=== PATIENT | female | born 1995 | race Caucasian/White ===

== ENCOUNTER 2017-12-21 11:58 | Emergency (ER) | payer MEDICAID ==
[~2017-12-21 11:58] MED LIST: EZFE 200200 MG PO; PRENATAL COMPLE1 TAB PO
[2017-12-21 15:40] LABS: BASOPHILS 0.2 % (0-2); EOSINOPHILS 1.1 % (0-7); HEMATOCRIT 37.9 % (36.0-48.0); HEMOGLOBIN 12.6 g/dL (12-16); IMMATURE GRANULOCYTES 0.1 % (0-5); LYMPHOCYTES 26.6 % (15-50); MCH 30.5 pg (26.0-34.0); MCHC 33.2 g/dL (31.0-37.0); MCV 91.8 fL (80.0-100.0); MEAN PLATELET VOLUME 9.7 fL (7.4-10.4); MONOCYTES 4.2 % (2-11); NEUTROPHILS 67.8 % (40-80); PLATELET COUNT 254 10x3/uL (130-400); RBC 4.13 10x6/uL (4.00-5.40); RDW 13.1 % (11.5-14.5)
[2017-12-21 15:47] LABS: APTT 26.6 SECONDS (22.8-39.4); INR 0.83 (0.85-1.17)
[2017-12-21 16:05] LABS: HCG URINE NEGATIVE (NEGATIVE)
[2017-12-21 16:06] LABS: APPEARANCE CLEAR (CLEAR); BILIRUBIN NEGATIVE (NEGATIVE); COLOR YELLOW (YELLOW); GLUCOSE NEGATIVE (NEGATIVE); KETONE NEGATIVE (NEGATIVE); NITRITE NEGATIVE (NEGATIVE); PROTEIN NEGATIVE (NEGATIVE); UROBILINOGEN NORMAL (NORMAL)
[2017-12-21 16:07] LABS: WHITE CELLS - URINE 25-50 /hpf (0-5)
[2017-12-21 16:08] LABS: BACTERIA FEW /hpf (NONE SEEN); EPITHELIAL CELLS 0-5 /hpf (0-5); RED CELLS - URINE 0-5 /hpf (0-5)
[2017-12-21 16:41] LABS: UDS - AMPHET NEGATIVE QUAL (NEGATIVE); UDS - BARB NEGATIVE QUAL (NEGATIVE); UDS - BENZO NEGATIVE QUAL (NEGATIVE); UDS - COCAINE NEGATIVE QUAL (NEGATIVE); UDS - OPIATE NEGATIVE QUAL (NEGATIVE); UDS - PCP NEGATIVE QUAL (NEGATIVE); UDS - THC NEGATIVE QUAL (NEGATIVE)
== END 2017-12-21 16:53 | disposition home or self-care (01) ==
LOC: D.ER 11:58
PROVIDERS: Physician Assistant Medical
DX: N39.0 Urinary tract infection, site not specified (principal)

== ENCOUNTER 2017-12-28 08:58 | Emergency (ER) | payer MEDICAID | END 2017-12-28 10:14 | disposition home or self-care (01) | LOC: D.ER 08:58 | DX: J11.1 Influenza due to unidentified influenza virus with other respiratory manifestations (principal); F17.200 Nicotine dependence, unspecified, uncomplicated ==

== ENCOUNTER 2018-01-07 17:56 | Emergency (ER) | payer MEDICAID ==
[2018-04-11 08:50] VITALS: BMI 23.7
== END 2018-01-07 18:00 | disposition left against medical advice (07) ==
LOC: D.ER 17:56
DX: Z02.9 Encounter for administrative examinations, unspecified (principal)

== ENCOUNTER 2018-01-07 18:23 | Emergency (ER) | payer MEDICAID ==
[2018-04-11 08:50] VITALS: BMI 23.7
== END 2018-01-07 23:47 | disposition home or self-care (01) ==
LOC: D.ER 18:23
DX: S46.912A Strain of unspecified muscle, fascia and tendon at shoulder and upper arm level, left arm, initial encounter (principal); X58.XXXA Exposure to other specified factors, initial encounter; Y93.89 Activity, other specified; Y92.89 Other specified places as the place of occurrence of the external cause; F17.200 Nicotine dependence, unspecified, uncomplicated

== ENCOUNTER 2018-04-04 14:49 | Emergency (ER) | payer OTHER ==
[2018-04-04 17:54] LABS: APPEARANCE HAZY (CLEAR); BILIRUBIN NEGATIVE (NEGATIVE); COLOR YELLOW (YELLOW); GLUCOSE NEGATIVE (NEGATIVE); KETONE NEGATIVE (NEGATIVE); NITRITE NEGATIVE (NEGATIVE); PROTEIN NEGATIVE (NEGATIVE); SPECIFIC GRAVITY 1.015 (1.005-1.020); UROBILINOGEN NORMAL (NORMAL)
[2018-04-04 17:55] LABS: WHITE CELLS - URINE 0-5 /hpf (0-5)
[2018-04-04 17:56] LABS: BACTERIA FEW /hpf (NONE SEEN); RED CELLS - URINE 0-5 /hpf (0-5)
[2018-04-04 17:58] LABS: HCG URINE NEGATIVE (NEGATIVE)
[2018-04-04 18:01] LABS: UDS - AMPHET POSITIVE QUAL (NEGATIVE); UDS - BARB NEGATIVE QUAL (NEGATIVE); UDS - BENZO NEGATIVE QUAL (NEGATIVE); UDS - COCAINE NEGATIVE QUAL (NEGATIVE); UDS - OPIATE NEGATIVE QUAL (NEGATIVE); UDS - PCP NEGATIVE QUAL (NEGATIVE); UDS - THC NEGATIVE QUAL (NEGATIVE)
[2018-04-11 08:50] VITALS: BMI 23.7
== END 2018-04-04 18:42 | disposition home or self-care (01) ==
LOC: D.ER 14:49
PROVIDERS: Physician Assistant
DX: M54.12 Radiculopathy, cervical region (principal); F15.90 Other stimulant use, unspecified, uncomplicated; J20.9 Acute bronchitis, unspecified

== ENCOUNTER 2018-04-11 06:35 | Day surgery (SDC) | payer MEDICAID ==
[2018-04-10 09:28] LABS: HEMATOCRIT 37.4 % (36.0-48.0); HEMOGLOBIN 12.8 g/dL (12-16); MCH 30.6 pg (26.0-34.0); MCHC 34.2 g/dL (31.0-37.0); MCV 89.5 fL (80.0-100.0); MEAN PLATELET VOLUME 9.8 fL (7.4-10.4); RBC 4.18 10x6/uL (4.00-5.40); WBC 8.3 10x3/uL (4.8-10.8)
[~2018-04-11] VITALS: Ht 162.6 cm; Wt 62.6 kg
--- NOTE | ~2018-04-11 | OP ---
PATIENT NAME: JOSE PARADA MEDICAL RECORD: [id number] :95 LOCATION:[facility] ADMISSION DATE: SURGEON: LIZA ROSSI MD DATE OF OPERATION: 04/11/2018 PREOPERATIVE DIAGNOSES: 1. Impingement syndrome of the left shoulder. 2. Rotator cuff tear of the left shoulder. 3. Painful hardware of the left forearm. POSTOPERATIVE DIAGNOSES: 1. Impingement syndrome of the left shoulder. 2. Acromioclavicular arthritis of the left shoulder. 3. Symptomatic hardware of the left forearm. PROCEDURES: 1. Arthroscopic distal clavicle excision done through separate incision -- 1 cm. 2. Arthroscopic subacromial decompression, acromioplasty, and bursectomy. 3. Removal of symptomatic hardware of the left forearm. SURGEON: Liza Rossi MD ACCOUNTING SYSTEM EXPERT: JOSEPH Murillo. INTRAOPERATIVE COMPLICATIONS: None. SUMMARY OF PATHOLOGIC FINDINGS: The patient did not have a full-thickness rotator cuff tear. There was some attritional tearing of the rotator cuff, mild biceps tendinitis was seen down to the floor. I felt like it needed a biceps tenodesis. The patient did have substantial subacromial bursitis with a type 3 acromion. The plate placed in the patient's forearm, specifically the ulna, had overgrowth at each ends and around the side that required mild osteotomy for removal. OPERATIVE SUMMARY IN DETAIL: After obtaining the appropriate preoperative orthopedic surgery consent as well as anesthetic consultation, evaluation and clearance, the patient was brought to the operating room and placed on the operating table supine position. After general laryngeal mask airway was administered, the patient was placed in right lateral decubitus position. All pressure points well padded to include down leg peritoneal pad as well as axillary roll. The patient was held firmly to the operating table using the vacuum pack suction system. Left upper extremity and shoulder were prepped and draped in a routine sterile fashion. The arm was held in the Arthrex traction boom in 30 degrees of forward flexion, 30 degrees of abduction, 10 pounds of traction laterally. Arthroscopy was established in the glenohumeral joint from the posterior portal. Anterior portal was established in the anterior safe interval. Diagnostic arthroscopy did reveal the patient to have some mild biceps tendinitis in the intraarticular aspect. Attention was then turned to the subacromial space. While in the subacromial space, substantial amount of bursitis was encountered. The [place] tissue ablation system was utilized to denude the undersurface of the acromion of all soft tissue elements. A 5-0 barrel bur was then used to perform acromioplasty at the level of acromioclavicular joint. Through a separate anterior portal, under direct arthroscopic visualization, distal clavicle was excised for 1 cm. Having OPERATIVE REPORT [id number] JOSE PARADA completed this, a substantial bursectomy was required to both the lateral recess, anterior recess, posterior recess, and across the top of the rotator cuff. Rotator cuff was visualized and rotated for dynamic arthroscopic visualization. No tearing could be found even with probing. Having completed this, arthroscopy portals were closed in routine interrupted fashion using 4-0 Prolene. Xeroform was then laid across this. At this point, a sterile tourniquet was brought in, placed in the upper aspect of the left forearm. The forearm was then exsanguinated, tourniquet was inflated to 250 mmHg. Incision was then made directly over the previous incision for insertion of the plate. It was elongated slightly on either end for better exposure. Dissection was carried down to the plate and a combination of rongeurs and osteotome was utilized to remove some of the overgrowth. Serial and sequential removal of the Synthes plate with both torque and standard hex head screws were removed. After this was removed, then the plate was gently tamped off with the osteotome. All bony prominences were then removed with a rongeur. The wound was then irrigated and closed with #1 Vicryl, followed by 2-0 Vicryl, followed by 4-0 Prolene. Sterile dressings were applied. Tourniquet was deflated. Final dressings were also applied to the shoulder. The patient was awakened, LMA was removed. She was taken to the recovery room in stable condition. All final needle and sponge counts were correct. TRANSINT:[id number] Voice Confirmation ID: [id number] DOCUMENT ID: [id number] ENID WARREN, LIZA STEIN at 1438 CC: [id number] DICTATION DATE: 04/11/18 1104 BAR MACHINE OPERATOR MULTIPLE SPINDLE: 04/11/18 1137 [facility] 04/11/18 [facility] [address] [place] [address]
[2018-04-11 08:50] VITALS: BP 102/54; Ht 162.6 cm; Wt 62.6 kg
[2018-04-11 09:17] LABS: HCG URINE NEGATIVE (NEGATIVE)
[2018-04-11] MEDS ORDERED: HYDROCODONE-APA1 TAB PO (10:59)
== END 2018-04-11 13:45 ==
LOC: D.OPS 06:35 → D.PAN 10:00 → D.OPS 13:00
PROVIDERS: Anesthesiology; Orthopaedic Surgery
DX: M75.42 Impingement syndrome of left shoulder (principal); M75.22 Bicipital tendinitis, left shoulder; F17.200 Nicotine dependence, unspecified, uncomplicated; Z01.812 Encounter for preprocedural laboratory examination; T84.84XA Pain due to internal orthopedic prosthetic devices, implants and grafts, initial encounter

== ENCOUNTER 2020-07-22 08:55 | Emergency (ER) | payer MEDICAID ==
[2018-04-11 08:50] VITALS: BMI 23.7
[~2020-07-22 08:55] MED LIST changes: +HYDROCODONE-APA1 TAB PO
== END 2020-07-22 09:30 | disposition left against medical advice (07) ==
LOC: D.ER 08:55
DX: R10.9 Unspecified abdominal pain (principal)

== ENCOUNTER 2020-07-25 08:48 | Emergency (ER) | payer MEDICAID ==
[~2020-07-25] VITALS: Ht 162.6 cm; Wt 54.5 kg
[2020-07-25 08:51] VITALS: Ht 162.6 cm; Wt 54.5 kg
[2020-07-25] MEDS ORDERED: CLEOCIN HCL300 MG PO (09:26)
[2020-07-25] MEDS ORDERED: KEFLEX500 MG PO (09:26)
[2020-07-25 09:36] LABS: BASOPHILS 0.3 % (0-2); EOSINOPHILS 1.5 % (0-7); HEMATOCRIT 41.2 % (36.0-48.0); HEMOGLOBIN 13.8 g/dL (12-16); IMMATURE GRANULOCYTES 0.1 % (0-5); LYMPHOCYTES 27.1 % (15-50); MCH 31.8 pg (26.0-34.0); MCHC 33.5 g/dL (31.0-37.0); MCV 94.9 fL (80.0-100.0); MEAN PLATELET VOLUME 9.2 fL (7.4-10.4); MONOCYTES 6.1 % (2-11); NEUTROPHILS 64.9 % (40-80); PLATELET COUNT 245 10x3/uL (130-400); RBC 4.34 10x6/uL (4.00-5.40); RDW 12.7 % (11.5-14.5); WBC 9.2 10x3/uL (4.8-10.8)
[2020-07-25 09:39] LABS: BILIRUBIN NEGATIVE (NEGATIVE); KETONE NEGATIVE (NEGATIVE); NITRITE NEGATIVE (NEGATIVE); UROBILINOGEN NORMAL mg/dL (< 2)
[2020-07-25 09:42] LABS: BACTERIA FEW /HPF (NONE SEEN); EPITHELIAL CELLS 0-5 /hpf (0-5)
[2020-07-25 09:45] LABS: HCG URINE NEGATIVE (NEGATIVE)
[2020-07-25 09:46] LABS: CALC OSMOLALITY 273 mosm/kg (275-300); CALCIUM 9.3 mg/dL (8.5-10.1); CHLORIDE - SERUM 101 mmol/L (98-107); CREATININE - SERUM 0.7 mg/dL (0.6-1.3); GLUCOSE 82 mg/dL (74-106); POTASSIUM - SERUM 3.2 mmol/L (3.5-5.1); SODIUM 137 mmol/L (136-145); UREA NITROGEN 16 mg/dL (7-18); eGFR NON AFRICAN AMERICAN > 90 mL/min (90-120)
[2020-07-25 09:52] LABS: ALKALINE PHOSPHATASE 94 U/L (30-120); ALT (SGPT) 32 U/L (10-68); BILIRUBIN - TOTAL 0.59 mg/dL (0.2-1.3); MAGNESIUM - SERUM 1.7 mg/dL (1.8-2.4); PROTEIN - SERUM 7.6 g/dL (6.4-8.2)
[2020-07-25 09:52] LABS: UDS - AMPHET POSITIVE QUAL (NEGATIVE); UDS - BARB NEGATIVE QUAL (NEGATIVE); UDS - BENZO NEGATIVE QUAL (NEGATIVE); UDS - COCAINE NEGATIVE QUAL (NEGATIVE); UDS - OPIATE NEGATIVE QUAL (NEGATIVE); UDS - PCP NEGATIVE QUAL (NEGATIVE); UDS - THC POSITIVE QUAL (NEGATIVE)
--- NOTE | 2020-07-25 09:53 | NUR ---
According to the suicide assessment the patient rates low for suicide and she will not need a 1:1 observation. Provided her a suicide safety flyer and let her physician and nurse know the results of the assessment.
[2020-07-25] MEDS ORDERED: KLONOPIN1 MG PO (20:14)
[2020-07-25] MEDS ORDERED: SEROQUEL200 MG (20:14)
[2020-07-25] MEDS ORDERED: LEXAPRO10 MG (20:15)
[2020-07-27 00:27] VITALS: BP 100/52
== END 2020-07-27 00:29 ==
LOC: D.ER 08:48
PROVIDERS: Family Medicine
DX: S00.01XA Abrasion of scalp, initial encounter (principal); S00.91XA Abrasion of unspecified part of head, initial encounter; X58.XXXA Exposure to other specified factors, initial encounter; L03.811 Cellulitis of head [any part, except face]; L02.811 Cutaneous abscess of head [any part, except face]; F32.9 Major depressive disorder, single episode, unspecified; F19.10 Other psychoactive substance abuse, uncomplicated; R45.851 Suicidal ideations

== ENCOUNTER 2020-08-15 03:14 | Emergency (ER) | payer MEDICAID ==
[~2020-08-15] VITALS: Ht 162.6 cm; Wt 54.5 kg
[~2020-08-15 03:14] MED LIST changes: +CLEOCIN HCL300 MG PO; +KEFLEX500 MG PO; +KLONOPIN1 MG PO; +LEXAPRO10 MG; +SEROQUEL200 MG
[2020-08-15 03:31] VITALS: Ht 162.6 cm; Wt 54.5 kg
[2020-08-15 03:45] LABS: BASOPHILS 0.2 % (0-2); EOSINOPHILS 1.7 % (0-7); HEMATOCRIT 35.5 % (36.0-48.0); HEMOGLOBIN 12.1 g/dL (12-16); IMMATURE GRANULOCYTES 0.2 % (0-5); LYMPHOCYTES 54.1 % (15-50); MCH 31.4 pg (26.0-34.0); MCHC 34.1 g/dL (31.0-37.0); MCV 92.2 fL (80.0-100.0); MEAN PLATELET VOLUME 8.9 fL (7.4-10.4); MONOCYTES 12.6 % (2-11); NEUTROPHILS 31.2 % (40-80); PLATELET COUNT 244 10x3/uL (130-400); RBC 3.85 10x6/uL (4.00-5.40); RDW 12.6 % (11.5-14.5); WBC 6.5 10x3/uL (4.8-10.8)
[2020-08-15 03:54] LABS: ALBUMIN 4.1 g/dL (3.4-5.0); ALKALINE PHOSPHATASE 80 U/L (30-120); ALT (SGPT) 31 U/L (10-68); CALCIUM 8.9 mg/dL (8.5-10.1); CARBON DIOXIDE 28.3 mmol/L (21.0-32.0); CHLORIDE - SERUM 105 mmol/L (98-107); CREATININE - SERUM 0.7 mg/dL (0.6-1.3); PROTEIN - SERUM 7.5 g/dL (6.4-8.2); SODIUM 140 mmol/L (136-145); UREA NITROGEN 18 mg/dL (7-18); eGFR NON AFRICAN AMERICAN > 90 mL/min (90-120)
[2020-08-15 03:55] LABS: CALC OSMOLALITY 278 mosm/kg (275-300); POTASSIUM - SERUM 2.9 mmol/L (3.5-5.1)
[2020-08-15 03:56] LABS: GLUCOSE 67 mg/dL (74-106)
[2020-08-15 04:01] LABS: BILIRUBIN NEGATIVE (NEGATIVE); KETONE NEGATIVE (NEGATIVE); NITRITE NEGATIVE (NEGATIVE); UROBILINOGEN NORMAL mg/dL (< 2)
[2020-08-15 04:01] LABS: HCG SERUM NEGATIVE (NEGATIVE)
[2020-08-15 04:06] LABS: UDS - AMPHET POSITIVE QUAL (NEGATIVE); UDS - BARB NEGATIVE QUAL (NEGATIVE); UDS - BENZO NEGATIVE QUAL (NEGATIVE); UDS - COCAINE POSITIVE QUAL (NEGATIVE); UDS - OPIATE NEGATIVE QUAL (NEGATIVE); UDS - PCP NEGATIVE QUAL (NEGATIVE); UDS - THC POSITIVE QUAL (NEGATIVE)
[2020-08-16 10:45] LABS: ANION GAP 9.9 mmol/L (8-16); CARBON DIOXIDE 24.4 mmol/L (21.0-32.0)
[2020-08-16 10:46] LABS: POTASSIUM - SERUM 4.3 mmol/L (3.5-5.1)
[2020-08-16 15:32] VITALS: BP 98/43
== END 2020-08-16 15:32 ==
LOC: D.ER 03:14
PROVIDERS: Emergency Medicine
DX: F23 Brief psychotic disorder (principal); F14.10 Cocaine abuse, uncomplicated; Z91.19 Patient's noncompliance with other medical treatment and regimen; F15.10 Other stimulant abuse, uncomplicated; Z86.59 Personal history of other mental and behavioral disorders

== ENCOUNTER 2021-04-08 09:27 | Emergency (ER) | payer MEDICAID ==
[~2021-04-08] VITALS: Ht 162.6 cm; Wt 54.5 kg
[2021-04-08 09:31] VITALS: Ht 162.6 cm; Wt 54.5 kg
[2021-04-08 11:13] LABS: BASOPHILS 0.6 % (0-2); EOSINOPHILS 2.5 % (0-7); HEMATOCRIT 38.5 % (36.0-48.0); HEMOGLOBIN 12.8 g/dL (12-16); LYMPHOCYTES 26.7 % (15-50); MCHC 33.1 g/dL (31.0-37.0); MCV 90.8 fL (80.0-100.0); MEAN PLATELET VOLUME 7.3 fL (7.4-10.4); MONOCYTES 6.8 % (2-11); NEUTROPHILS 63.4 % (40-80); PLATELET COUNT 255 10x3/uL (130-400); RBC 4.24 10x6/uL (4.00-5.40); RDW 13.3 % (11.5-14.5); WBC 7.1 10x3/uL (4.8-10.8)
[2021-04-08 11:22] LABS: CALC OSMOLALITY 278 mosm/kg (275-300); CALCIUM 8.6 mg/dL (8.5-10.1); CARBON DIOXIDE 27.8 mmol/L (21.0-32.0); CHLORIDE - SERUM 105 mmol/L (98-107); CREATININE - SERUM 0.5 mg/dL (0.6-1.3); GLUCOSE 130 mg/dL (74-106); POTASSIUM - SERUM 3.5 mmol/L (3.5-5.1); SODIUM 138 mmol/L (136-145); UREA NITROGEN 15 mg/dL (7-18); eGFR NON AFRICAN AMERICAN > 90 mL/min (90-120)
[2021-04-08 11:26] LABS: ACETAMINOPHEN 0.6 ug/mL (10.0-30.0); ALBUMIN 3.1 g/dL (3.4-5.0); ALKALINE PHOSPHATASE 77 U/L (30-120); ALT (SGPT) 23 U/L (10-68); BILIRUBIN - TOTAL 0.35 mg/dL (0.2-1.3); MAGNESIUM - SERUM 1.7 mg/dL (1.8-2.4); PROTEIN - SERUM 6.2 g/dL (6.4-8.2)
[2021-04-08 13:09] LABS: BILIRUBIN NEGATIVE (NEGATIVE); KETONE NEGATIVE (NEGATIVE); NITRITE NEGATIVE (NEGATIVE); UROBILINOGEN 4 mg/dL (< 2)
[2021-04-08 13:10] LABS: HCG URINE NEGATIVE (NEGATIVE)
[2021-04-08 13:16] LABS: UDS - AMPHET POSITIVE QUAL (NEGATIVE); UDS - BARB NEGATIVE QUAL (NEGATIVE); UDS - BENZO NEGATIVE QUAL (NEGATIVE); UDS - COCAINE NEGATIVE QUAL (NEGATIVE); UDS - OPIATE NEGATIVE QUAL (NEGATIVE); UDS - PCP NEGATIVE QUAL (NEGATIVE); UDS - THC POSITIVE QUAL (NEGATIVE)
[2021-04-08 13:56] VITALS: BP 104/66
--- NOTE | 2021-04-08 14:25 | NUR ---
Per observation and assessment, Patient is lying on a ER cot with eyes closed and this nurse is unable to arouse. This nurse has repeated her name 3 times and she will not or cannot open her eyes. Unable to complete suicide risk assessment at this time as patient is asleep. Per Dr. Musa will add nursing precautions order for suicide precauction observation. ER charge nurse and physician aware and ok with order. Will attempt suicide risk assessment later.
--- NOTE | 2021-04-08 16:24 | NUR ---
Per assessment and observation, suicide assessment completed. Discussed findings with ER physician, Dr. Musa, and ER charge nurse. Patient scored a High risk. Per ER staff, She will be referred for inpatient counseling and medication adjustments. She has a past Hx of suicidal ideations and harm. She is homeless and cannot always get her medications. One to one observation will continue until placement.
== END 2021-04-08 18:23 ==
LOC: D.ER 09:27
PROVIDERS: Emergency Medicine
DX: R45.851 Suicidal ideations (principal); F19.10 Other psychoactive substance abuse, uncomplicated; Z91.19 Patient's noncompliance with other medical treatment and regimen; R42 Dizziness and giddiness